=== PATIENT | female | born 1955 | race Caucasian/White ===

== ENCOUNTER 2016-10-24 09:55 | Emergency (ER) | payer BC ==
[2016-10-24 10:06] VITALS: BP 124/67
--- NOTE | 2016-10-24 11:04 | UC ---
Lilly Groves Edward, scribed for Diamond Gonzalez MD on 10/24/16 at 1031 . Throat Pain/Nasal Bertrand HPI - HPI Summary HPI Summary: 61 y/o female presents to [facility] c/o a productive cough, yellow green sputum, starting two days ago. The cough has caused rib and back pain but does not keep the patient up at night. Associated sx: sore throat rated 6/10 @ triage, subjective fevers, chills, nasal back drip. Denies ear pain, sinus congestion. No OTC meds taken. Pt has previously used MDI but thinks medications get on her tongue. Feel fatigue. concerned getting PNA PMHx HTN, DM. Patient is a current every day smoker (a pack a day). No EtOH and no drug use. Patient is accompanied by her granddaughter. NKDA. Past medications reviewed on visit. - History of Current Complaint Chief Complaint: UCRespiratory Stated Complaint: SORE THROAT Time Seen by Provider: 10/24/16 10:21 Hx Obtained From: Patient Severity: Moderate Pain Intensity: 6 Pain Scale Used: 0-10 Numeric Cough: Nonproductive Associated Signs & Symptoms: Positive: Nasal Discharge - Back drip, Fever, Other - Chills, sore throat - Allergies/Home Medications Allergies/Adverse Reactions: Allergies Allergy/AdvReac Type Severity Reaction Status Date / Time No Known Allergies Allergy Verified 10/24/16 10:06 Home Medications: Home Medications Ibuprofen [Ibuprofen 200 MG] 800 mg PO Q6H PRN 10/24/16 [History Confirmed 10/24] PMH/Surg Hx/FS Hx/Imm Hx - Additional Past Medical History Additional PMH: Negative: HTN, DM. Positive: knee pain. Previously Healthy: No Respiratory History: Pneumonia Other History Of: Negative For: Anticoagulant Therapy - Surgical History Surgical History: Yes Surgery Procedure, Year, and Place: arthroscopy L knee, tubal - Family History Known Family History: Negative: Respiratory Disease - Social History Alcohol Use: Rare Substance Use Type: None Smoking Status (MU): Heavy Every Day Tobacco Smoker Type: Cigarettes Amount Used/How Often: 1 PPD Review of Systems Constitutional: Fever, Chills Skin: Negative Eyes: Negative ENT: Sore Throat, Other - Nasal back drip. Negative ear pain, sinus congestion. Respiratory: Cough Cardiovascular: Negative Gastrointestinal: Negative Genitourinary: Negative Motor: Negative Neurovascular: Negative Musculoskeletal: Negative Neurological: Negative Psychological: Negative All Other Systems Reviewed And Are Negative: Yes Physical Exam Triage Information Reviewed: Yes Appearance: Well-Appearing, No Pain Distress, Well-Nourished Vital Signs: Initial Vital Signs Temp 98.9 F 10/24/16 10:00 Pulse 89 10/24/16 10:00 Resp 16 10/24/16 10:00 BP 124/67 10/24/16 10:00 Pulse Ox 98 10/24/16 10:00 Vital Signs Reviewed: Yes Eye Exam: Normal ENT Exam: Normal ENT: Positive: Nasal congestion, TMs normal, Other: - TM x 2 clear turbinates inflammed and boggy + PND no erythema, exudate uvula midline. Negative: Tonsillar exudate Dental Exam: Normal Respiratory: Positive: Other: - + BS throughout + few, scattered wheeze no retraction, no rhonci coarse, intermittent cough Cardiovascular Exam: Normal Cardiovascular: Positive: RRR, No Murmur Abdominal Exam: Normal Abdomen Description: Positive: Nontender, No Organomegaly, Soft Bowel Sounds: Positive: Present Musculoskeletal Exam: Normal Neurological Exam: Normal Psychological Exam: Normal Skin Exam: Normal Throat Pain/Nasal Course/Dx - Course Assessment/Plan: 61 y/o female presents to [facility] c/o a producitve cough starting two days ago. The cough has caused rib and back pain but does not keep the patient up at night. Pt with heavy tobacco use. Rapid strep test negative in [facility] course. Will start abx, MDI with aerochamber, tussionex. precautions given. secretion hygeine discussed - Differential Dx/Diagnosis Provider Diagnoses: bronchitis Discharge - Discharge Plan Condition: Stable Disposition: HOME Prescriptions: Albuterol HFA INHALER* [Ventolin HFA Inhaler*] 1 - 2 puff INH Q4H PRN #1 mdi PRN Reason: wheeze Azithromycin TAB* [Zithromax TAB (Z-SUSANNAH) 250 mg #6 tabs] 2 tab PO .TODAY, THEN 1 DAILY #1 susannah Guaifenesin-Codeine [Cheratussin AC] 10 ml PO Q8HR PRN #100 syp MDD 30 PRN Reason: Cough Spacer/Aerosol-Holding Chamber [Aerochamber Plus] 1 mis INH Q4HR #1 mis Patient Education Materials: Acute Bronchitis (ED) Referrals: Asaf Lima MD [Primary Care Provider] - Additional Instructions: Stay well hydrated. Drink plenty of non-alcoholic, non-caffinated beverages. Use albuterol puffer - 2 puffs every 4-6 hours for wheezing After you have been on antibiotics for 2 days - change your toothbrush and your pillowcase. These infections are spread by secretions - do NOT share eating or drinking utensils - clean items you share with other people such as cell phones, computer mouse, TV remote, computer tablets, etc - Alternate ibuprofen (Advil, Motrin) 600mg and Tylenol every 3 hours for pain or fever. Take with food. Do NOT take for more than 4-5 days. -Okay to take cough medication as prescribed. THis medication contains a narcotic - do not drive, operate machinery or drink alcohol while taking narcotic - Call your doctor on Wednesday to schedule a follow-up appointment. Call your doctor or return with questions or concerns The documentation as recorded by the Lilly santa Edward accurately reflects the service I personally performed and the decisions made by , Diamond Gonzalez MD.
== END 2016-10-24 11:15 | disposition home or self-care (01) ==
LOC: UCEAST 09:55
DX: J40 Bronchitis, not specified as acute or chronic (principal); R09.81 Nasal congestion; F17.210 Nicotine dependence, cigarettes, uncomplicated
CPT/HCPCS: 87651; 99212; G0463